=== PATIENT | male | born 1940 | race Caucasian/White ===

== ENCOUNTER 2021-09-01 10:30 | Outpatient (RCR) | payer MEDICARE, SELFPAY ==
--- NOTE | 2021-08-03 16:48 | PTOPEVAL ---
PHYSICAL THERAPY EVALUATION Thank you for referring Vitaly Oakley to [facility] [place] Don was evaluated for the dx of low back/left leg radiculopathy. The patient is scheduled to be seen for therapy? 2 x/week for 4 weeks. Please review, sign, date and return this plan of care RUPALI. I agree with and certify that the following plan of care is medically necessary. Referring Physician Date Referring Provider: Joan Barrientos *PT Outpatient Evaluation Start: 08/03/21 15:31 Freq: Status: Active Protocol: Document 08/03/21 15:31 MLV (Rec: 08/03/21 16:33 MLV [id number]) Therapy Assessment Status Assessment Status Assessment Status Evaluation Evaluation Information Problem Diagnosis low back pain w/ left leg radiculopathy Onset week before 2020 Cause none Additional Evaluation Detail The patient began having pain before leaving on a trip to [place]. The pain became intense after driving a while and didn't let up. The pt walked a long distance yesterday and feels a little better today. The patient reports the pain traveling down into the calf. Patient reports this being the first time having trouble with his back/leg. The patient is retired but pretty active. The patient mows alot, manages some property, does house projects indoor and outdoor. The patient will have increased pain with standing and walking. The patient also has pain at his leg with sleeping. He has tried ice and heat to his back and got some relief with the ice. Diagnostic Tests X-Rays For This Problem Yes: possible sciatica per pt MD report Pain Assessment Timing of Pain Assessment Timing of Pain Assessment Assessment Pain Scale Pain Scale Used Numeric (1 - 10) Self Report Pain Assessment Left Leg(s) Reported Pain Level 0 Pain Description Aching Pain Frequency Acute Greatest Pain Intensity 5 Lower Back Reported Pain Level 0 Pain Description Sharp,Stabbing Pain
--- NOTE | 2021-09-01 11:01 | PTOPEVAL ---
PHYSICAL THERAPY PLAN OF CARE UPDATE Thank you for referring Vitaly Oakley to [facility] [place] We are going to hold chart. If we do not hear from Vitaly in the next 30 days, this note will be considered a discharge note. If further care is needed, an update will be sent. Please review, sign, date and return this plan of care RUPALI. I agree with and certify that the following plan of care is medically necessary. Referring Physician Date Diagnosis low back pain w/ left leg radiculopathy Onset week before gi2020 Cause none Additional Evaluation Detail The patient began having pain before leaving on a trip to [place]. The pain became intense after driving a while and didn't let up. The pt walked a long distance yesterday and feels a little better today. The patient reports the pain traveling down into the calf. Patient reports this being the first time having trouble with his back/leg. The patient is retired but pretty active. The patient mows alot, manages some property, does house projects indoor and outdoor. The patient will have increased pain with standing and walking. The patient also has pain at his leg with sleeping. He has tried ice and heat to his back and got some relief with the ice. Pain Score Pain Score 0: Self Report Cervical and Lumbar ROM Lumbar ROM Reason Not Measured WFL/Left,WFL/Right Lumbar Flexion Active Ankle Query Text:Hands to: Lower Extremity Range of Motion General Lower Extremity Range of Motion Reason Not Measured WFL/Left,WFL/Right Lower Extremity Muscle Strength Testing Hip Strength Left Hip Flexion Strength 5 Normal Hip Extension Strength 4+ Good + Hip Abduction Strength 4+ Good + Knee Strength Left Knee Flexion Strength 5 Normal Knee Extension Strength 5 Normal Muscle Length Testing Muscle Length Testing Piriformis w/Hip Flexion <90 Degrees (R) Moderate Tightness,(L) Severe Tightness Left Hamstring Length -40 Query Text:(90 - 90 Position) Right Hamstring Length -38 Query Text:(90 - 90 Position)
== END 2021-09-28 09:01 | disposition home or self-care (01) ==
LOC: ANHPT 10:30
DX: M54.50 Low back pain, unspecified (principal)
CPT/HCPCS: 97014; 97110; 97140; 97162; G0283

== ENCOUNTER 2023-03-26 17:27 | Emergency (ER) | payer MEDICARE, SELFPAY ==
[2023-03-26 17:40] VITALS: BP 136/55; PULSE 63; RESP 18; TEMP 37.1; O2SAT 100
--- NOTE | 2023-03-26 17:42 | ED.GENADULT ---
HPI - General Adult General Chief complaint: Eye Problems Stated complaint: Right Eye Irritation Time Seen by Provider: 03/26/23 17:42 Source: patient, RN notes reviewed and old records reviewed Mode of arrival: ambulatory Limitations: no limitations History of Present Illness HPI narrative: 82-year-old male presents to the [facility] with complaints of right eye redness without any other complaints. Has small amount of redness to the lower sclera right eye. Denies any pain. Denies any trauma. Denies any blurry vision or change in vision. States that he sneezed really hard last night. Denies any straining or coughing. Onset (ago): day(s) (1) Treatments prior to arrival: none Related Data Home Medications Medication Instructions Recorded Confirmed amlodipine 10 mg tablet 10 mg PO DAILY 03/26/23 03/26/23 aspirin 81 mg tablet 81 mg PO DAILY 03/26/23 03/26/23 cetirizine 10 mg tablet (Zyrtec) 10 mg PO DAILY 03/26/23 03/26/23 empagliflozin 10 mg tablet 10 mg PO DAILY 03/26/23 03/26/23 (Jardiance) irbesartan 300 mg tablet 300 mg PO DAILY 03/26/23 03/26/23 naphazoline 0.012 % eye drops See Rx Instructions .Route .COMPLEX 03/26/23 03/26/23 simvastatin 20 mg tablet 20 mg PO DAILY 03/26/23 03/26/23 Allergies Allergy/AdvReac Type Severity Reaction Status Date / Time No Known Allergies Allergy Verified 03/26/23 17:31 Review of Systems Review of Systems: All systems reviewed & are unremarkable except as noted in HPI and below Constitutional: Constitutional: Reports no additional constitutional complaints Eyes: Eyes: Reports as per HPI ENT: Reports system reviewed and no additional complaints, except as documented Cardiovascular: Cardiovascular: Reports no additional cardiovascular complaints, Denies chest pain and Denies dyspnea Respiratory: Respiratory: Reports no additional respiratory complaints, Denies chest congestion, Denies cough and Denies dyspnea Gastrointestinal: Gastrointestinal: Reports no additional gastrointestinal complaints, Denies abdominal pain, Denies nausea and Denies vomiting Musculoskeletal: Musculoskeletal: Reports no additional musculoskeletal complaints Integumentary/Breasts: Skin/Breast: Reports system reviewed and no additional complaints, except as docu Neurologic: Reports system reviewed and no additional complaints, except as documented Psychiatric: Psychiatric: Reports no additional psychiatric complaints Allergic/Immunologic: Allergic/Immunologic: Reports no additional allergic/immunologic complaints [facility] Past Medical History Medical History (Updated 03/26/23 @ 19:50 by Mala Membreno APRN) History of high blood pressure Comments At the time of my signature, I reviewed and agree with the nursing past medical, surgical, social, and family history. There is no relevant family history pertinent to the patient complaint. Exam Const: General: cooperative, healthy appearing, comfortable, no acute distress, well developed, alert and well nourished Nutritional Appearance: well nourished Orientation/consciousness: patient oriented x3 Limitations: no limitations HENMT: Head: normal to inspection Ears: hearing grossly normal bilaterally and external ears normal Face/Nose/Sinus: Normal external nose present, Normal nares present, Normal nasal mucous membranes and turbinates present and normal facial exam Face and sinus: normal facial exam Mouth: Yes Normal oral and palatal mucosa present, Yes lip normal and Yes moist mucous membranes Throat: posterior oropharynx normal and uvula midline Eyes: General: appearance normal, both eyes and all related structures Visual Kang: normal visual kang by confrontation Alignment and Position: alignment normal Periorbital: periorbital findings normal Eyelids: eyelids normal Conjunctivae: conjunctivae normal Sclera: scleral abnormality right hemorrhage (lower right eye) Pupils: Equal, round and reactive pupils present EOM: EOMs intact bilater
== END 2023-03-26 17:53 | disposition home or self-care (01) ==
PROVIDERS: Emergency Provider Nurse Practitioner
DX: H11.31 Conjunctival hemorrhage, right eye (principal); I10 Essential (primary) hypertension; Z79.82 Long term (current) use of aspirin
CPT/HCPCS: 99212; G0463

== ENCOUNTER 2024-03-30 16:16 | Emergency (ER) | payer MEDICARE, SELFPAY ==
[2024-03-30 16:31] VITALS: BP 126/50; PULSE 65; RESP 16; TEMP 37.1; O2SAT 98
--- NOTE | 2024-03-30 16:37 | ED.EXTPRO ---
HPI - Extremity Problem General Chief complaint: Extremity Problem,Nontraumatic Stated complaint: pain in right hip and down leg Time Seen by Provider: 03/30/24 16:35 Source: patient Mode of arrival: ambulatory Limitations: no limitations History of Present Illness HPI Narrative: Vitaly is an 83-year-old male patient presenting to the clinic today with complaints of right-sided lower posterior hip pain. States that the he has had some discomfort in his hip for a long time however few days ago he tweaked his hip and is having pain to the posterior lower hip/sacrum. States pain is worse with standing and walking at times however it is not constant. States his hip feels stiff when sitting too long. Related Data Home Medications Medication Instructions Recorded Confirmed amlodipine 10 mg tablet 10 mg PO DAILY 03/26/23 03/30/24 aspirin 81 mg tablet 81 mg PO DAILY 03/26/23 03/30/24 cetirizine 10 mg tablet (Zyrtec) 10 mg PO DAILY 03/26/23 03/30/24 empagliflozin 10 mg tablet 10 mg PO DAILY 03/26/23 03/30/24 (Jardiance) irbesartan 300 mg tablet 300 mg PO DAILY 03/26/23 03/30/24 naphazoline 0.012 % eye drops See Rx Instructions .Route .COMPLEX 03/26/23 03/30/24 simvastatin 20 mg tablet 20 mg PO DAILY 03/26/23 03/30/24 Allergies Allergy/AdvReac Type Severity Reaction Status Date / Time No Known Allergies Allergy Verified 03/30/24 16:24 Review of Systems Review of Systems: Pertinent positives per HPI. Patient denies any fever, chills, rash, headache, visual changes, dizziness, cough, runny nose, sore throat, shortness of breath, chest pain, palpitations, nausea, vomiting, diarrhea, constipation, abdominal pain, or any urinary issues. PMFSH Past Medical History Medical History History of high blood pressure Comments At the time of my signature, I reviewed and agree with the nursing past medical, surgical, social, and family history. There is no relevant family history pertinent to the patient complaint. Exam Narrative: General: Well-developed, well nourished, in no apparent distress Head: Normocephalic, atraumatic. Cardio: Regular rate and rhythm, s1 and s2 normal, no murmur appreciated. Resp: Clear to auscultation bilaterally, no rhonchi, rales, wheezing or rubs. Musculoskeletal: No deformity, tender to palpation over the lower right lower ischium-insertion area of hamstring musculature, grossly normal range of motion, muscle strength strong and equal, peripheral pulse strong, no edema, no cyanosis, normal gait and station Course Course Emergency Course: Portions of this record may have been created with voice recognition software. Level of Care: Express Care Visit Vital Signs Vital signs: Vital Signs Temperature 37.1 C 03/30/24 16:31 Pulse Rate 65 03/30/24 16:31 Respiratory Rate 16 03/30/24 16:31 Blood Pressure 126/50 L 03/30/24 16:31 Pulse Oximetry 98 03/30/24 16:31 Oxygen Delivery Room Air 03/30/24 16:31 Temperature 37.1 C 03/30/24 16:31 Pulse Rate 65 03/30/24 16:31 Respiratory Rate 16 03/30/24 16:31 Blood Pressure 126/50 L 03/30/24 16:31 Pulse Oximetry 98 03/30/24 16:31 Oxygen Delivery Room Air 03/30/24 16:31 Vital signs reviewed MDM - Extremity (Nontraumatic) MDM Narrative Medical decision making narrative: At the time of visit patient is resting comfortably on the exam table. Patient appears to be nontoxic. Plan: I suspect patient has a hamstring muscle strain. Patient is not having any pain with ambulation or wear bearing at this time. Do not feel as though as necessary to doing a x-ray at this time. Will trial Medrol Dosepak and have him follow-up with his primary care provider if symptoms persist for further evaluation. Supportive measures were discussed with the patient and they voiced understanding discharge instructions and agrees to treatment plan. Return precautions reviewed
== END 2024-03-30 16:42 | disposition home or self-care (01) ==
PROVIDERS: Emergency Provider Nurse Practitioner Family
DX: S76.311A Strain of muscle, fascia and tendon of the posterior muscle group at thigh level, right thigh, initial encounter (principal); X58.XXXA Exposure to other specified factors, initial encounter; I10 Essential (primary) hypertension
CPT/HCPCS: 99213; G0463

== ENCOUNTER 2025-03-13 11:00 | Outpatient (RCR) | payer MEDICARE, SELFPAY ==
--- NOTE | 2025-02-09 09:50 | OPREHPOC ---
Outpatient Therapy Plan of Care This is a Multidisciplinary Plan of Care that may contain components documented by all disciplines (PT, OT, and ST.) PT Problem 1 PT Problem #1 Knowledge Deficit PT Goal 1 Goal / Goal Update 1*independent with HEP 2* pt demonstrate correct lifting posture and body mechanics Target Visit 8 PT Problem 2 PT Problem #2 Pain PT Goal 1 Goal / Goal Update 1* pt report pain at worst of back and R hip 5/10 Target Visit 8 PT Problem 3 PT Problem #3 Impaired Flexibility PT Goal 1 Goal / Goal Update improve flexibility of hips and trunk, to decrease pull on hip and lumbar spine and improve symmetry hamstring length with supine SLR to 55' 1* R 2* L anterior hip/quad length with prone knee flexion to 125' 3* R 4* L piriformis length with supine cross leg stretch- knee cross mid line of body 5* R 6* L Target Visit 8 PT Problem 4 PT Problem #4 Impaired Strength PT Goal 1 Goal / Goal Update increase strength of trunk and bilateral hips to 4+/5 Target Visit 8
--- NOTE | 2025-02-09 09:50 | PTOPEVAL1 ---
Assessment and note entered by Tata Jeffers, PT Evaluation Information Assessment Status Evaluation ICD-10 Condition Codes (PT) Pain in low back M54.50,Pain in right hip M25.551 Onset November 2024 Subjective Information gradual increase in R hip pain, without injury to hip/back; saw Dr Bynum/ortho, xray of hip: mild degenerative changes, significant lumbar spine changes; history of chronic, intermittent back pain increase pain with doing 2 hours of yard work/ pulling weeds and carrying things have had PT in the past for his back; activity: active and independent with all home and self care activity; does not do fitness exercises Reported Pain Level Pain Score Self Report Additional Pain Score Comments pain range in the past week 2-04/29: low back and R buttock increase: carrying, lifting, pulling weeds decrease pain: rest does not use heat, ice, meds sleeping is Ok Assessment PT Clinical Summary Mehul has the diagnosis of R hip pain and lumbar pain. He has history of chronic, intermittent back pain. Recently saw ortho about his R hip pain with xray: R hip mild degenerative changes and lumbar with significant changes. He is active and independent with all home and self care activities. He does not do any fitness exercises for his back or legs. History includes: HTN, hernia surgery, cardiac stents and diabetes. With the evaluation: his back pain is increased with standing trunk flexion, supine R hip IR motions; tightness over bilateral hamstrings & piriformis, and R anterior hip-quad muscles; standing posture with flat thoracic and lumbar spine. Skilled PT services are indicated for modalities to decrease pain, therapeutic exercises to increase flexibility & strength of hips and trunk; with education for HEP, body mechanics and pain control. Plan of Care Interventions Electrical Stimulation,Hot Pack/Cold Pack,Manual Therapy,Mechanical Traction,Neuro Re-education, Patient/Caregiver Education,Therapeutic Activities ,Therapeutic Exercise,Ultrasound PT Services Indicated Yes Treatment Frequency and 1-2x/wk for 8 visits Duration These treatments will address the objective and functional deficits as defined above. The patient will be advanced safely and appropriately in order for the patient to progress towards his/her prior level of function. Additional exercises will be introduced and as well as a comprehensive home exercise program upon discharge, if needed, ?to ensure carryover of functional gains achieved in the clinic. This treatment plan has been reviewed and agreement upon by the patient.
--- NOTE | 2025-03-13 11:47 | OPREHPOC ---
Outpatient Therapy Plan of Care This is a Multidisciplinary Plan of Care that may contain components documented by all disciplines (PT, OT, and ST.) PT Problem 1 PT Problem #1 Knowledge Deficit PT Goal 1 Goal / Goal Update 1*independent with HEP 2* pt demonstrate correct lifting posture and body mechanics 03-13-25 d/c goals met Target Visit 8 Progress Met PT Problem 2 PT Problem #2 Pain PT Goal 1 Goal / Goal Update 1* pt report pain at worst of back and R hip 5/10 03-13-25 d/c goal met Target Visit 8 PT Problem 3 PT Problem #3 Impaired Flexibility PT Goal 1 Goal / Goal Update improve flexibility of hips and trunk, to decrease pull on hip and lumbar spine and improve symmetry hamstring length with supine SLR to 55' 1* R 2* L anterior hip/quad length with prone knee flexion to 125' 3* R 4* L piriformis length with supine cross leg stretch- knee cross mid line of body 5* R 6* L 03-13-25 d/c goals met Target Visit 8 Progress Met PT Problem 4 PT Problem #4 Impaired Strength PT Goal 1 Goal / Goal Update increase strength of trunk and bilateral hips to 4+/5 03-13-25 d/c goal met Target Visit 8 Progress Met
--- NOTE | 2025-03-13 11:47 | PTOPDC ---
Assessment and note entered by Tata Jeffers, PT Assessment Status Discharge ICD-10 Condition Codes (PT) Pain in low back M54.50,Pain in right hip M25.551 Onset November 2024 Subjective Information have been doing the exercises, they are uncomfortable in his back after they are done-- like been overdoing it and stretching; feel like I am stronger; doing everything at home, but slower doing it. Feel like ready to be done with therapy. Reported Pain Level Pain Score Self Report Additional Pain Score Comments pain in back over the past week 0-2/10; R hip 0-3/10 pain in hip increase with walking and carrying pain in back increase with doing exercises have cramp in L calf Assessment PT Clinical Summary Mehul has received 7 PT sessions. He has improved in all areas: with today's assessment: pain rating in back and R hip of 0-3/10 self assessment with LE functional scale rating of 30% limitation in activity level; increase strength of hips and trunk; education for HEP, body mechanics, lifting posture. The goals were achieved. Discharge PT. He is to continue with HEP and monitor body mechanics. Plan of Care PT Services Indicated No
== END 2025-03-13 14:04 | disposition home or self-care (01) ==
LOC: ANHPT 11:00
PROVIDERS: PCP Orthopaedic Surgery
DX: M25.551 Pain in right hip (principal); M54.50 Low back pain, unspecified
CPT/HCPCS: 97110; 97140; 97161; 97530